=== PATIENT | male | born 1990 | race Caucasian/White ===

== ENCOUNTER 2019-09-07 10:52 | Emergency (ER) | payer OTHER, SELFPAY ==
[2019-09-07] VITALS (8 sets, daily range): BP systolic 97–135; BP diastolic 58–96; PULSE 73–112; RESP 16–24; TEMP 36.4; O2SAT 96–100
--- NOTE | ~2019-09-07 | CT_ITS ---
EXAMINATION: CT brain wo con EXAM DATE: 09/07/2019 11:32 INDICATION: Temporary change in awareness. TECHNIQUE: Spiral CT of the head was performed without contrast. Axial, coronal and sagittal images were reviewed. The dose-length product (DLP) for this examination was 605.33 mGy-cm. The exposure w as tailored according to patient size, and iterative reconstruction (ASIR) was used as additional dos e reduction technique. There is no prior study for comparison. FINDINGS: There is no acute intraparenchymal hemorrhage. No evidence of intraparenchymal brain mass lesion. No evidence of acute infarction. There is no mass effect or midline shift. The ventricles are normal in size. There are no extra-axial collections. There are no acute calvarial fractures. T he orbits are unremarkable. Soft tissue is unremarkable. The visualized sinuses and mastoid air fernando ls are well aerated. IMPRESSION: 1. Unremarkable head CT examination. Reviewed, dictated and finalized at location A.
--- NOTE | 2019-09-07 10:51 | ED.AMS ---
HPI - Altered Mental Status General Chief Complaint: Altered Mental Status <Villa Tobar MD - Last Filed: 09/07/19 14:41> Stated Complaint: AMS, Drunk <Villa Tobar MD - Last Filed: 09/07/19 14:41> Time Seen by Provider: 09/07/19 10:52 <Villa Tobar MD - Last Filed: 09/07/19 14:41> Source: EMS and RN notes reviewed <Villa Tobar MD - Last Filed: 09/07/19 14:41> Mode of arrival: EMS <Villa Tobar MD - Last Filed: 09/07/19 14:41> Limitations: altered mental status <Villa Tobar MD - Last Filed: 09/07/19 14:41> History of Present Illness HPI narrative: Pt is a 32 y/o male presenting to the ED via EMS c/o AMS. EMS report the pt was only responsive to painful stimuli and was foaming at the mouth when they arrived to the pt's home earlier today. Per EMS, the pt stated he has been binge drinking alcohol for the past 5 days. EMS state the pt notes his only drug use is Marijuana. Pt's mother at bedside reports the pt had about 12 shots of Fireball Whiskey this morning. HPI is limited due to pt's AMS. Most information provided by EMS. <Villa oTbar MD - Last Filed: 09/07/19 14:41> Onset (ago): unknown (Earlier today) <Villa Tobar MD - Last Filed: 09/07/19 14:41> Associated symptoms: denies other symptoms <Villa Tobar MD - Last Filed: 09/07/19 14:41> Related Data Home Medications: Home Medications Medication Instructions Recorded Confirmed No Home Medications 09/07/19 09/07/19 <Villa Tobar MD - Last Filed: 09/07/19 14:41> Allergies/Adverse Reactions: Allergies Allergy/AdvReac Type Severity Reaction Status Date / Time No Known Allergies Allergy Verified 09/07/19 12:52 <Villa Tobar MD - Last Filed: 09/07/19 14:41> Review of Systems Review of Systems: Narrative: ROS is limited due to pt's AMS. All Sx's provided by EMS. <Villa Tobar MD - Last Filed: 09/07/19 14:41> All systems reviewed & are unremarkable except as noted in HPI and below <Villa Tobar MD - Last Filed: 09/07/19 14:41> Neurologic: Reports other (AMS; Foaming at mouth) <Villa Tobar MD - Last Filed: 09/07/19 14:41> PMFSH Past Medical History Medical History: Medical History No significant past medical history <Villa Tobar MD - Last Filed: 09/07/19 14:41> Surgical History Surgical History: Surgical History No significant past surgical history <Villa Tobar MD - Last Filed: 09/07/19 14:41> Social History Social History: Social History Smoking status: Unknown if ever smoked Alcohol intake: current Substance use type: marijuana Gender identity (if verbalized by the patient): Male <Villa Tobar MD - Last Filed: 09/07/19 14:41> Exam Const: General: no acute distress and alert <Villa Tobar MD - Last Filed: 09/07/19 14:41> Orientation/consciousness: patient oriented x3 <Villa Tobar MD - Last Filed: 09/07/19 14:41> HENMT: Mouth: Yes dry mucous membranes <Villa Tobar MD - Last Filed: 09/07/19 14:41> Resp: Effort & Inspection: normal respiratory effort <Villa Tobar MD - Last Filed: 09/07/19 14:41> Auscultation: clear to auscultation bilaterally <Villa Tobar MD - Last Filed: 09/07/19 14:41> Cardio: Rate: regular rate <Villa Tobar MD - Last Filed: 09/07/19 14:41> Rhythm: regular rhythm <Villa Tobar MD - Last Filed: 09/07/19 14:41> GI: GI Palp: Yes Soft to palpation and No Tenderness to palpation present (GI) <Villa Tobar MD - Last Filed: 09/07/19 14:41> Skin: General skin exam: normal color <Villa Tobar MD - Last Filed: 09/07/19 14:41> Rashes: no rashes <Villa Tobar MD - Last Filed: 09/07/19 14:41> Neuro: Genera
--- NOTE | 2019-09-07 11:28 | PC.NURSE ---
PT HAS AGREED TO CT AND LABS AT THIS TIME, APOLOGIZING FOR HOW HE IS ACTING AND STATES THAT HE THOUGHT HE WAS BEING BULLIED. STATES THAT HE WILL COOPERATE BUT IS VERY FATIGUED. ASKING FOR SOMETHING TO HELP HIM CALM DOWN AND SLEEP. VERBAL ORDER PER ERP THEO FOR 2MG ATIVAN IVP STAT.
[2019-09-07] MEDS: LORAZEPAM INJ 2 MG/ML VIAL IV PUSH ×2 (11:30→15:30)
--- NOTE | 2019-09-07 11:30 | PC.NURSE ---
PT TO CT AT THIS TIME.
[2019-09-07 11:33] LABS: Basophils Percent Auto 0.6 % (0.2-1.2); Eosinophils Percent Auto 0.4 % (0-4.4); Hematocrit 45.4 % (42.0-52.0); Hemoglobin 15.3 g/dL (14.0-18.0); Immature Granulocyte Absolute 0.01 K/mm3 (0.00-0.031); Immature Granulocyte Percent A 0.2 % (0-0.5); Lymphocytes Absolute Auto 1.34 K/mm3 (0.9-3.2); Lymphocytes Percent Auto 26.6 % (18.3-44.2); Mean Corpuscular HGB Conc 33.7 g/dl (32-36); Mean Corpuscular Hemoglobin 29.8 pg (26-34); Mean Corpuscular Volume 88.3 fl (80-100); Mean Platelet Volume 10.5 fl (7.4-10.4); Monocytes Absolute Auto 0.5 K/mm3 (0.1-0.6); Monocytes Percent Auto 8.9 % (2.6-8.5); Neutrophils Absolute Auto 3.2 K/mm3 (1.3-6.7); Neutrophils Percent Auto 63.3 % (45.5-73.1); Platelet Count Result 194 k/mm3 (150-375); Red Blood Count 5.14 M/mm3 (4.6-6.20); Red Cell Distribution Width 13.2 % (11.5-14.5)
[2019-09-07 11:45] LABS: Alanine Aminotransferase 15 U/L (4-50); Albumin Level 4.3 g/dL (3.5-5.1); Alkaline Phosphatase 75 U/L (38-126); Aspartate Amino Transferase 21 U/L (17-59); Bilirubin,Total 0.6 mg/dL (0.2-1.3); Blood Urea Nitrogen 8 mg/dL (9-20); Calcium 8.9 mg/dL (8.4-10.2); Carbon Dioxide 23 mmol/L (22-30); Chloride 110 mmol/L (98-107); Estimated CRCL calculation 128 ml/min; Estimated Glomerular Filt Rate > 60; Ethanol 173 mg/dL (<10); Glucose 117 mg/dL (75-110); Potassium 3.4 mmol/L (3.4-5.0); Sodium 142 mmol/L (137-145)
[2019-09-07] MEDS: SODIUM CHLORIDE 0.9% IV 2,000 ML 999 ML IV CONT (11:56)
[2019-09-07 11:59] LABS: Add Urine Microscopic? YES; Appearance Urine Cloudy (Clear); Bacteria Urine Trace /hpf; Bilirubin Urine Negative (Negative); Blood Urine Negative (Negative); Color Urine Yellow (Yellow); Glucose Urine UA Negative (Negative); Ketones Urine Negative (Negative); Leukocyte Esterase Ur 1+ LEU/UL (Negative); Mucus Urine Few /lpf; Nitrate Urine Negative (Negative); Protein Urine Negative (Negative); RBC Urine 0-2 /hpf (0-2); Specific Grav Ur 1.013 (1.001-1.035); Squamous Epithelial Cell Urine Moderate /hpf (Few); WBC Urine 21-30 /hpf
[2019-09-07 12:11] LABS: Amphetamine Screen Urine Negative (Negative); Barbiturate Screen Urine Negative (Negative); Benzodiazepines Screen Urine Negative (Negative); Cannabinoid Screen Urine Positive (Negative); Cocaine Screen Urine Negative (Negative); Methadone Screen Urine Negative (Negative); Opiate Screen Urine Negative (Negative); Phencyclidine Screen Urine Negative (Negative)
[2019-09-07 12:15] LABS: Thyroid Stimulating Hormone 0.784 uIU/mL (0.465-4.680)
[2019-09-07] MEDS: Please add drug allergy info to patient profile. 1 EACH XX (12:53)
--- NOTE | 2019-09-07 13:07 | PC.NURSE ---
SPOKE WITH PT MOTHER AT THIS TIME, PT ASLEEP, I INFORMED MOTHER THAT WE HAVE TO WAIT FOR PT ALCOHOL LEVEL TO COME DOWN IN ORDER FOR PT TO BE MEDICALLY CLEARED. I ALSO INFORMED MOTHER THAT TERRELL RUBIOLESLIE WOULD LIKE FOR CRISIS TO COME EVALUATE PT WHEN HE MEDICALLY CLEARED. MOTHER STATES THAT SHE AGREES WITH PLAN OF CARE, BUT IS GOING TO GO HOME TO GATHER SOME BELONGINGS AND MAKE A CALL AND THEN SHE SHOULD BE RETURNING TO THE ED AROUND 1500. STATES THAT SHE THINKS THAT PT WILL SLEEP UNTIL SHE RETURNS.
[2019-09-07 15:05] LABS: Ethanol 113 mg/dL (<10)
--- NOTE | 2019-09-07 15:10 | PC.NURSE ---
PT NOT WANTING TO STAY IN ROOM, STATING HE WANTS TO LEAVE, I WALKED PT BACK TO ROOM, HE HAS AGREED TO STAY WITH PARENTS AT BEDSIDE AT THIS TIME.
--- NOTE | 2019-09-07 17:13 | PC.NURSE ---
FAMILY MEMBER SPEAKING WITH MYSELF AND TERRELL BASSETT ABOUT PT AT THIS TIME, FEARFUL ABOUT PT SAFETY. PT STANDING IN DOORWAY LISTENING, A&OX3, STEADY GAIT. PT VERBALIZING MULTIPLE TIMES THAT HE IS DENYING HI/SI AND WILL NOT STAY TO SPEAK WITH CRISIS FOR A F/U PLAN. PT SELF REMOVED X1 IV. TERRELL BASSETT STATES THAT BECAUSE PT IS STABLE ORIENTATED THAT HE IS CLINICALLY SOBER AND CLEARED TO LEAVE LONG HE HAS A RIDE HOME.
== END 2019-09-07 17:25 | disposition home or self-care (01) ==
PROVIDERS: Emergency Medicine; Emergency Provider Emergency Medicine
DX: F10.220 Alcohol dependence with intoxication, uncomplicated (principal); Y90.6 Blood alcohol level of 120-199 mg/100 ml
CPT/HCPCS: 36415; 70450; 80053; 80307; 81001; 84443; 85025; 87086; 96361; 96374; 96376; 99284; J2060; J7030

== ENCOUNTER 2022-09-13 14:40 | Emergency (ER) | payer MEDICARE, MEDICAID, SELFPAY ==
[2022-09-13 15:42] VITALS: BP 143/92; PULSE 87; RESP 18; TEMP 36.7; O2SAT 100
--- NOTE | 2022-09-13 17:25 | PC.NURSE ---
Pt addressed nurses station and states that services no longer needed, pt left without being seen by provider
== END 2022-09-13 17:25 | disposition left against medical advice (07) ==
DX: F10.239 Alcohol dependence with withdrawal, unspecified (principal)
CPT/HCPCS: 99199